=== PATIENT | male | born 1990 | race Caucasian/White ===

== ENCOUNTER 2018-02-24 05:16 | Emergency (ER) | payer OTHER, MEDICAID, SELFPAY ==
--- NOTE | 2018-02-24 05:17 | ED.EXTPRO ---
HPI - Extremity Problem General Chief complaint: Extremity Injury, Upper Stated complaint: thinks right hand is broken Time Seen by Provider: 02/24/18 05:17 Source: patient Mode of arrival: ambulatory Limitations: no limitations History of Present Illness HPI Narrative: 27-year-old [id number] male here for evaluation of a right hand injury. Patient states that he was coming down off of a ladder that he was painting on and accidentally stepped in the paint bucket. He states that he fell over and his right hand went through a window. He has pain over the back of his right hand with skin abrasions. Is up-to-date with his tetanus. Did wash his hand prior to arrival here in the ER. Review of Systems Musculoskeletal Comments: Right hand injury Integumentary/Breasts Comments: abrasions of the right hand Neurologic Comments: no numbness or tingling of the right hand Hematologic/Lymphatic Comments: not on anticoagulation PFSH Medical History Healthy adult (Acute) Surgical History No pertinent past surgical history (Acute) Social History lives independently: Yes Smoking Status: Current every day smoker Exam Initial Vital Signs Initial Vital Signs: Vital Signs Temperature 97.5 F L 02/24/18 05:24 Pulse Rate 93 H 02/24/18 05:24 Respiratory Rate 18 02/24/18 05:24 Blood Pressure 144/79 H 02/24/18 05:24 Pulse Oximetry 98 02/24/18 05:24 Const General: cooperative, healthy appearing, comfortable, well developed, well groomed and No acute distress Orientation: alert and awake HENCO Head: normal to inspection and normocephalic Resp Effort & Inspection: normal respiratory effort Cardio Pulses: radial pulses present on the right Skin Other: patient with multiple abrasions over the right middle finger and over the MCP joints of the right ring and little finger. No active bleeding. These are abrasions. Not amenable to suturing. Neuro Sensory Exam: no sensory deficits noted Extrem Other: Right elbow unremarkable right wrist unremarkable patient tender to palpation over the MCP joints of the right little and ring finger with swelling over these areas. The rest of these fingers are unremarkable. Does not have tenderness along the 3rd 4th or 5th metacarpals. Course Orders Ordered: ED Orders 02/24/18 05:19 XR hand RT min 3V Stat Vital Signs - 8 hr 02/24/18 05:24 Temperature 97.5 F L Pulse Rate 93 H Respiratory Rate 18 Blood Pressure 144/79 H Pulse Oximetry 98 MDM - Extremity (Nontraumatic) Imaging Data X-ray right hand: Attestation: I personally reviewed and interpreted this imaging study as follows: My impression: no fractures, no dislocations, no acute deformity MDM Narrative Medical decision making narrative: Neurovascularly intact. No fractures noted on the x-ray. Does have an old fracture at the base of the 5th however he is not tender over this area. He is up-to-date on his tetanus. He was given care instructions and return precautions. He expressed understanding and agreement with plan. Discharge Plan Departure Patient Disposition: Home Clinical Impression: Injury of hand, right, Abrasion of skin Instructions: DI for Abrasion Activity Restrictions/Additional Instructions: there were no fractures noted on the x-rays today. the abrasions on Your hand will heal. You can shower like normal and wash your hands like normal. keep ice on your hand to help keep the swelling down. You can take Tylenol or Motrin for any discomfort. return to the emergency department for any new or worsening symptoms
--- NOTE | 2018-02-24 05:19 | DI.RAD.S_ITS ---
PROCEDURE: XR HAND RT MIN 3V INDICATIONS: pain after trauma TECHNIQUE: 3 views of the hand(s) acquired. COMPARISON: [facility], CR, HAND MIN 3VW (RT), 07/10/2010, 20:50. FINDINGS: Bones: Slight deformity of the base of the fifth metatarsal possibly related to remote trauma. No acute fractures or dislocations. Carpal bones are normally aligned. No suspicious bony lesions. Soft tissues: No suspicious soft tissue calcifications. IMPRESSION: No acute fracture. No acute osseous lesion. If symptoms and/or clinical suspicion for pathology persists, further assessment with repeat radiographs (7-10 days) or advanced imaging (e.g. CT, MRI or bone scan) may be helpful. Dictated by: Shari Guo MD, PhD on 02/24/2018 at 8:19 Approved by: Shari Guo MD, PhD on 02/24/2018 at 8:21
[2018-02-24 05:24] VITALS: BP 144/79; PULSE 93; RESP 18; TEMP 36.4; O2SAT 98; BMI 27.9
--- NOTE | 2018-02-24 05:59 | PC.NURSE ---
Upon discharge pt says he feels like there was glass in his hand still. Provided wound care. Dr. Mcguire removed sliver of glass from hand.
== END 2018-02-24 06:01 | disposition home or self-care (01) ==
PROVIDERS: Emergency Provider Emergency Medicine
DX: S69.91XA Unspecified injury of right wrist, hand and finger(s), initial encounter (principal); S60.511A Abrasion of right hand, initial encounter; W25.XXXA Contact with sharp glass, initial encounter
CPT/HCPCS: 73130; 99282; 99283

== ENCOUNTER 2018-03-05 09:55 | Emergency (ER) | payer OTHER, MEDICAID, SELFPAY ==
[2018-03-05 10:08] VITALS: BP 168/102; PULSE 88; RESP 16; TEMP 36.4; O2SAT 100; BMI 22.3
--- NOTE | 2018-03-05 10:16 | DI.RAD.S_ITS ---
PROCEDURE: XR KNEE RT 3V INDICATIONS: proximal fibular head pain dislocation? TECHNIQUE: 3 views of the knee were acquired. COMPARISON: None. FINDINGS: Bones: No fractures or dislocations. No suspicious bony lesions. Soft tissues: No joint effusion. No suspicious soft tissue calcifications. IMPRESSION: No right knee fracture or dislocation. No significant joint effusion no gross soft tissue abnormality. Dictated by: Indra Conn M.D. on 03/05/2018 at 10:54 Approved by: Indra Conn M.D. on 03/05/2018 at 10:55
--- NOTE | 2018-03-05 10:16 | DI.RAD.S_ITS ---
PROCEDURE: XR ANKLE RT 2V INDICATIONS: proximal fibular head problem TECHNIQUE: 3 views of the ankle were acquired. COMPARISON: None. FINDINGS: Bones: No fractures or dislocations. Ankle mortise is normally aligned. No suspicious bony lesions. Soft tissues: No tibiotalar joint effusion. Achilles tendon appears normal. IMPRESSION: No acute ankle fracture or dislocation. Dictated by: Indra Conn M.D. on 03/05/2018 at 10:54 Approved by: Indra Conn M.D. on 03/05/2018 at 10:54
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
--- NOTE | 2018-03-05 11:23 | PC.NURSE ---
right knee lateral proximal fibula with deformity.
== END 2018-03-05 11:19 | disposition home or self-care (01) ==
PROVIDERS: Emergency Provider Emergency Medicine
DX: S83.91XA Sprain of unspecified site of right knee, initial encounter (principal)
CPT/HCPCS: 73562; 73600; 99282; 99283

== ENCOUNTER 2019-07-23 06:02 | Observation (INO) | payer OTHER, MEDICAID, SELFPAY ==
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
--- NOTE | 2019-07-23 06:16 | PC.NURSE ---
See paper documentation for trauma flowsheet
[2019-07-23 06:22] LABS: Add Manual Diff / Slide Review NO; Basophils Absolute Auto 100 /uL (0-100); Basophils Percent Auto 0.7 % (0-2); Eosinophils Absolute Auto 100 /uL (0-450); Eosinophils Percent Auto 1.4 % (2-4); Hemoglobin 15.6 g/dL (13.5-17.5); Lymphocytes Absolute Auto 2100 /uL (1100-4500); Lymphocytes Percent Auto 30.9 % (25-40); Mean Corpuscular HGB Conc 35.4 % (30-36); Mean Corpuscular Hemoglobin 31.9 PG (26-34); Mean Corpuscular Volume 90.1 fL (80-100); Monocytes Absolute Auto 400 /uL (0-900); Monocytes Percent Auto 6.4 % (3-14); Neutrophils Absolute Auto 4200 /uL (1500-7000); Neutrophils Percent Auto 60.6 % (50-75); Platelet Count 263 X10^3/uL (150-400); Red Blood Cell Count 4.88 X10^6/uL (4.5-5.9); Red Cell Distribution Width 12.9 % (11.6-14.8); White Blood Cell Count 6.9 X10^3/uL (4.5-11.0)
[2019-07-23 06:32] VITALS: BP 152/90; PULSE 87; RESP 22; TEMP 36.7; O2SAT 99
[2019-07-23 06:32] LABS: Ethanol (ETOH) < 10 mg/dL
[2019-07-23 06:35] VITALS: BP 131/65; PULSE 63; RESP 16; O2SAT 99
[2019-07-23 06:40] LABS: Alanine Aminotransferase 24 IU/L (<50); Albumin 4.6 g/dL (3.5-5.0); Albumin Globulin Ratio 1.5 (1.0-2.8); Alkaline Phosphatase 73 U/L (38-126); Aspartate Aminotransferase 47 IU/L (17-59); BUN Creatinine Ratio 20.8 (6-22); Bilirubin Total 0.7 mg/dL (0.2-1.3); Blood Urea Nitrogen 20 mg/dL (9-20); Calcium 9.7 mg/dL (8.4-10.2); Carbon Dioxide 29 mmol/L (22-32); Chloride 102 mmol/L (98-107); Estimated Glomerular Filt Rate > 60.0 mL/min (>60); Glucose 102 mg/dL (70-100); HEMOLYSIS 92 (0-50); Lipase 118 U/L (23-300); Sodium 138 mmol/L (137-145); Total Protein 7.6 g/dL (6.3-8.2)
--- NOTE | 2019-07-23 06:40 | PC.NURSE ---
abrasion on right cheek. Patient appears to be sleeping and easily arousable by voice.
[2019-07-23 06:42] LABS: Potassium 4.4 mmol/L (3.4-5.1)
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
[2019-07-23 07:15] VITALS: BP 110/61; PULSE 72; RESP 12; TEMP 36.2; O2SAT 99
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
[2019-07-23 07:56] LABS: UR Morphine/Opiate cutoff 300 Negative (Negative); Ur Creatinine Normal (Normal); Ur Specific Gravity Normal (Normal); Urine Amphetamines Positive (Negative); Urine Cocaine Negative (Negative); Urine Methamphetamines Positive (Negative); Urine Phencyclidine Negative (Negative); Urine Tetrahydrocannabinol Positive (Negative); Urine pH Normal (Normal)
[2019-07-23 07:57] LABS: Urine Barbiturates Negative (Negative); Urine Benzodiazepines Negative (Negative); Urine MDMA Positive (Negative); Urine Methadone Negative (Negative); Urine Oxycodone Negative (Negative); Urine Tricyclic Antidepressant Negative (Negative)
[2019-07-23 08:20] VITALS: BP 148/77; PULSE 72; RESP 16; TEMP 36.1; O2SAT 99
[2019-07-23 08:50] VITALS: BMI 17.8
[2019-07-23] MEDS: SODIUM CHLORIDE 0.9% 1,000 ML 125 ML IV (10:10)
--- NOTE | 2019-07-23 12:13 | PM.EVENT ---
Event Note Date Patient Seen: 07/23/19 Time Patient Seen: 12:13 Event Note: GCS 15 following commands. No focal deficits. No C spine tenderness. C collar removed.
[2019-07-23 12:53] VITALS: BP 125/69; PULSE 61; RESP 16; TEMP 36; O2SAT 100
--- NOTE | 2019-07-23 15:12 | CM.DPNOTE ---
Received a call from Ludy GODDARD to request assistance with ride home. Medicaid form completed and faxed to request ride. Nurses extension provided because of CM hours of availability.
--- NOTE | 2019-07-23 15:57 | PC.NURSE ---
Admit: Patient arrived to room 206 at 0820 this morning and was very somnolent at that time. Was able to open eyes and state his name. Became more alert and awake as the day progressed and stated that he wanted to be discharged. Patient alert and oriented X3, steady on feet independently. Ate full lunch without issues. 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 Discharge: Tele dc'd. IV dc'd intact. Reviewed d/c paperwork with patient and denied further questions. Ended up discharging with a friend for a ride rather than medicare (which CM had kindly helped us arrange). All belongings sent with patient including cellphone, clothing, shoes, dodge, police report paperwork, etc. Walked out to private vehicle accompanied by nursing staff.
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
== END 2019-07-23 16:02 | disposition home or self-care (01) ==
LOC: ED 07:19 → AC 07:24
PROVIDERS: Admitting Provider Surgery; Emergency Provider Emergency Medicine; Visit Provider Surgery
DX: R41.0 Disorientation, unspecified (principal); S00.81XA Abrasion of other part of head, initial encounter; V48.5XXA Car driver injured in noncollision transport accident in traffic accident, initial encounter; Y92.410 Unspecified street and highway as the place of occurrence of the external cause; F17.210 Nicotine dependence, cigarettes, uncomplicated; F15.10 Other stimulant abuse, uncomplicated; F12.10 Cannabis abuse, uncomplicated
CPT/HCPCS: 36415; 70450; 70486; 71045; 72125; 72170; 80053; 80305; 80320; 83690; 85025; 99234; 99285; 99291; G0378; J1644